=== PATIENT | female | born 1960 | race American Indian/Alaskan Native ===

== ENCOUNTER 2017-01-17 08:21 | Outpatient (CLI) | payer OTHER ==
--- NOTE | 2017-01-17 10:40 | Ultrasound Report ---
Left mammogram and left breast ultrasound: The patient presents with a prior mammogram at an outside facility in November 2016 demonstrating a focal density in the upper-outer left breast. Spot CC and lateral compression views are obtained. The density is somewhat better visualized and are lateral projection demonstrating a lobulated density with what may represent asymmetric echolucency measuring approximately 11 mm in size. No calcifications. Targeted ultrasound of the breast in the area of concern approximately 12 cm lateral to the nipple does demonstrate a circumscribed echolucency with increased eccentric echodensity measuring just over 1 cm. This is consistent with the mammographic finding and also that of a benign lymph node. No other significant findings in this area. Impressions: The mammographic and ultrasound findings appear consistent and that of a benign lymph node. Recommendation: Left breast mammogram in 6 months to confirm stability. Repeat ultrasound if there is any significant change. BI-RADS CATEGORY: 3 = Probably benign ACR BI-RADS MAMMOGRAPHIC CODES: 0 = Needs additional imaging evaluation; 1 = Negative; 2 = Benign; 3 = Probably benign; 4 = Suspicious; 5 = Malignant; 6 = Known biopsy-proven malignancy COMMENT: 1. Dense breast tissue, i.e., adenosis, fibrocystic changes, etc., may obscure an underlying neoplasm. 2. Approximately 10% of cancers are not detected with mammography. 3. A negative mammography report should not delay biopsy if a clinically suspicious mass is present.
== END 2017-01-17 08:22 | disposition home or self-care (01) ==
LOC: SPVWC 08:21
PROVIDERS: ATTEND Family Medicine
DX: N63.20 Unspecified lump in the left breast, unspecified quadrant (principal)
CPT/HCPCS: 76642; G0206